=== PATIENT | female | born 1940 | race Caucasian/White ===

== ENCOUNTER 2017-01-08 05:59 | Day surgery (SDC) | payer OTHER ==
[2017-01-04 13:32] VITALS: BMI 26.9
--- NOTE | 2017-01-08 07:33 | HP ---
Admitting History and Physical - Primary Care Physician PCP: Enrique Garrett - Admission History of Present Illness: patient is a 76 y/o female with a past medical history of anxiety, depression, ocd, hypertension, and hyperlipidemia. patient presents for ect. she has received ect in the past, her last ect was 3 years ago at [facility]. she reports self-discontinuing ect because of lack of improvement of depression. She does report a recent hospitalizations at [facility] 04/18 , for depression. patient does reports suicidal ideation, however, she does not have a plan. She denies any homicidal ideation, visual or auditory hallucination. She does report compliance with prescribed medications. History Source: Patient Limitations to Obtaining History: No Limitations - Past Medical History Cardiovascular: Yes: HTN - Smoking History Smoking history: Never smoked Have you smoked in the past 12 months: No - Alcohol/Substance Use Hx Alcohol Use: No - Social History Usual Living Arrangement: Yes: With Spouse ADL: Independent History of Recent Travel: No Home Medications - Allergies Allergies/Adverse Reactions: Allergies Allergy/AdvReac Type Severity Reaction Status Date / Time ciprofloxacin [From Cipro] Allergy Severe Swelling Verified 01/02/12 11:32 ciprofloxacin HCl Allergy Severe Swelling Verified 01/02/12 11:32 [From Cipro] levofloxacin [From Levaquin] Allergy Severe Swelling Verified 01/04/17 13:35 - Home Medications Home Medications: Ambulatory Orders Atorvastatin Ca [Lipitor] 20 mg PO HS 07/22/13 FA/Mv,Ca,Iron,Min/Lycopene/Lut [Centrum Tablet] 1 each PO DAILY 07/22/13 Ramipril [Altace] 10 mg PO DAILY 07/22/13 Trazodone HCl 50 mg PO HS 11/09/16 Alprazolam [Xanax] 0.5 mg PO BID PRN 01/04/17 Cholecalciferol (Vitamin D3) [Vitamin D3] 2,000 unit PO DAILY 01/04/17 Fluoxetine HCl [Prozac] 20 mg PO DAILY 01/04/17 Family Disease History - Family Disease History Family Disease History: Other: Daughter (depression/anxiety ) Review of Systems - Review of Systems Constitutional: reports: No Symptoms Eyes: reports: No Symptoms HENT: reports: No Symptoms Neck: reports: No Symptoms Cardiovascular: reports: No Symptoms Respiratory: reports: No Symptoms Gastrointestinal: reports: No Symptoms Musculoskeletal: reports: No Symptoms Integumentary: reports: No Symptoms Neurological: reports: No Symptoms Endocrine: reports: No Symptoms Hematology/Lymphatic: reports: No Symptoms Psychiatric: reports: Anxiety, Depression Physical Examination Vital Signs: Vital Signs Temperature 97.8 F 01/08/17 07:04 Pulse Rate 64 01/08/17 07:04 Respiratory Rate 18 01/08/17 07:04 Blood Pressure 127/68 01/08/17 07:04 O2 Sat by Pulse Oximetry (%) 98 01/08/17 07:04 Constitutional: Yes: Well Nourished, Anxious Eyes: Yes: WNL, Conjunctiva Clear, EOM Intact HENT: Yes: WNL, Atraumatic, Normocephalic Neck: Yes: WNL, Supple, Trachea Midline Cardiovascular: Yes: WNL, Regular Rate and Rhythm, S1, S2 Respiratory: Yes: WNL, Regular, CTA Bilaterally Gastrointestinal: Yes: WNL, Normal Bowel Sounds, Soft ...Rectal Exam: Yes: Deferred Renal/: Yes: WNL Musculoskeletal: Yes: WNL Extremities: Yes: WNL Edema: No Peripheral Pulses WNL: Yes Peripheral Pulses: Left Radial: 4+, Right Radial: 4+, Left Doralis Pedis: 3+, Right Dorsalis Pedis: 3+, Left Femoral: 3+, Right Femoral: 3+ Neurological: Yes: WNL, Alert, Oriented ...Motor Strength: WNL Psychiatric: Yes: WNL, Alert, Oriented Imaging - Results EKG: Other (NSR, nst inferior leads) Assessment/Plan pt is a 76 y/o female that presents for ect, pt reports [facility] which resulted as negative as per the patient. labs and ekg reviewed pt is low risk for procedure informed consent, risks/benefits to be obtained by Dr Brown
[2017-01-08 08:25] LABS: ALBUMIN 3.7 g/dl (3.4-5.0); BILIRUBIN,TOTAL 0.7 mg/dL (0.2-1.0); CALCIUM 9.3 mg/dL (8.5-10.1); COCKROFT - GAULT 47.7105; CREATININE 1.2 mg/dL (0.55-1.02); TOT PROT 6.3 g/dl (6.4-8.2)
[2017-01-08 08:43] LABS: BASOPHIL 0.4 % (0-2.0); EOSINOPHIL 1.7 % (0-4.5); MCH 31.2 pg (25.7-33.7); MCHC 35.1 g/dl (32.0-36.0); MEAN CELL VOLUME 88.9 fl (80-96); MEAN PLT VOLUME 9.3 fl (7.5-11.1); NEUTROPHILS 72.3 % (42.8-82.8); PLATELET COUNT 205 K/MM3 (134-434); RDW 13.4 % (11.6-15.6); WHITE BLOOD COUNT 8.6 K/mm3 (4.0-10.0)
[2017-01-08] MEDS ORDERED: KETAMINE HCL 500 MG/10 ML VIAL ONE (08:45)
[2017-01-08] MEDS ORDERED: ACETAMINOPHEN 325 MG TABLET (FP) ONE (10:11)
[2017-01-08] MEDS ORDERED: ACETAMINOPHEN 325 MG TABLET (FP) PO ONE (10:23)
[2017-01-08 10:29] VITALS: TEMP 98.8
[2017-01-08 10:31] VITALS: BP 129/79; PULSE 88
--- NOTE | 2017-01-09 09:04 | EKG ---
Test Reason : Blood Pressure : / mmHG Vent. Rate : 065 BPM Atrial Rate : 065 BPM P-R Int : 164 ms QRS Dur : 084 ms QT Int : 414 ms P-R-T Axes : 038 000 035 degrees QTc Int : 430 ms NORMAL SINUS RHYTHM INFERIOR INFARCT , AGE UNDETERMINED NO PREVIOUS ECGS AVAILABLE Confirmed by MD NAA, SHERIN ([id number]) on 01/09/2017 9:04:44 AM Referred By: Óscar Brown Confirmed By:SHERIN JACOME MD
== END 2017-01-08 10:30 | disposition home or self-care (01) ==
LOC: FECT 05:59
PROVIDERS: ATTEND Psychiatry & Neurology Psychiatry
PROC: GZB4ZZZ Other Electroconvulsive Therapy (ICD-10-PCS; principal; 2017-01-08 08:30)
DX: F33.2 Major depressive disorder, recurrent severe without psychotic features (principal)
CPT/HCPCS: 36415; 80053; 85025; 90870; 93005; 94760

== ENCOUNTER 2017-01-10 05:20 | Day surgery (SDC) | payer OTHER ==
[2017-01-09 09:25] VITALS: BMI 26.9
[2017-01-10 06:09] VITALS: TEMP 97.8
[2017-01-10] MEDS ORDERED: KETAMINE HCL 500 MG/10 ML VIAL ONE (06:54)
[2017-01-10 08:32] VITALS: BP 116/74; PULSE 62
[2017-01-10] MEDS ORDERED: LACTATED RINGERS SOLUTION 1,000 ML IV SCH (09:45)
[2017-01-10] MEDS ORDERED: ONDANSETRON 4 MG/2 ML VIAL IVPUSH PRN (10:10)
== END 2017-01-10 08:15 | disposition home or self-care (01) ==
LOC: FECT 05:20
PROVIDERS: ATTEND Psychiatry & Neurology Psychiatry
PROC: GZB4ZZZ Other Electroconvulsive Therapy (ICD-10-PCS; principal; 2017-01-10 07:15)
DX: F33.2 Major depressive disorder, recurrent severe without psychotic features (principal)
CPT/HCPCS: 90870; 94760

== ENCOUNTER 2017-01-12 06:16 | Day surgery (SDC) | payer OTHER ==
[2017-01-08 08:28] VITALS: BMI 26.9
[2017-01-12] MEDS ORDERED: KETAMINE HCL 500 MG/10 ML VIAL ONE (08:12)
[2017-01-12 09:26] VITALS: TEMP 98.7
[2017-01-12 09:54] VITALS: BP 141/91; PULSE 66
== END 2017-01-12 09:55 | disposition home or self-care (01) ==
LOC: FECT 06:16
PROVIDERS: ATTEND Psychiatry & Neurology Psychiatry
PROC: GZB4ZZZ Other Electroconvulsive Therapy (ICD-10-PCS; principal; 2017-01-12 07:45)
DX: F33.2 Major depressive disorder, recurrent severe without psychotic features (principal)
CPT/HCPCS: 90870; 94760

== ENCOUNTER 2017-01-15 06:01 | Day surgery (SDC) | payer OTHER ==
[2017-01-08 13:28] VITALS: BMI 26.9
[2017-01-15] MEDS ORDERED: KETAMINE HCL 500 MG/10 ML VIAL ONE (08:00)
[2017-01-15 09:15] VITALS: PULSE 65; TEMP 97.7
[2017-01-15 09:36] VITALS: BP 139/74
== END 2017-01-15 09:51 | disposition home or self-care (01) ==
LOC: FECT 06:01
PROVIDERS: ATTEND Psychiatry & Neurology Psychiatry
PROC: GZB4ZZZ Other Electroconvulsive Therapy (ICD-10-PCS; principal; 2017-01-15 08:30)
DX: F33.2 Major depressive disorder, recurrent severe without psychotic features (principal)
CPT/HCPCS: 90870; 94760

== ENCOUNTER 2017-01-17 05:31 | Day surgery (SDC) | payer OTHER ==
[2017-01-10 12:18] VITALS: BMI 26.9
[2017-01-17] MEDS ORDERED: KETAMINE HCL 500 MG/10 ML VIAL ONE (08:57)
[2017-01-17 15:30] VITALS: PULSE 67; TEMP 97.7
[2017-01-17 15:40] VITALS: BP 136/75
== END 2017-01-17 10:25 | disposition home or self-care (01) ==
LOC: FECT 05:31
PROVIDERS: ATTEND Psychiatry & Neurology Psychiatry
PROC: GZB4ZZZ Other Electroconvulsive Therapy (ICD-10-PCS; principal; 2017-01-17 08:00)
DX: F33.2 Major depressive disorder, recurrent severe without psychotic features (principal)
CPT/HCPCS: 90870; 94760

== ENCOUNTER 2017-01-19 05:41 | Day surgery (SDC) | payer OTHER ==
[2017-01-09 14:21] VITALS: BMI 26.9
[2017-01-19] MEDS ORDERED: KETAMINE HCL 500 MG/10 ML VIAL ONE (09:10)
[2017-01-19 10:46] VITALS: TEMP 98.1
[2017-01-19 10:47] VITALS: BP 128/70; PULSE 77
[2017-01-19] MEDS ORDERED: ONDANSETRON 4 MG/2 ML VIAL IVPUSH PRN (10:57)
[2017-01-19] MEDS ORDERED: LACTATED RINGERS SOLUTION 1,000 ML IV SCH (11:00)
== END 2017-01-19 10:20 | disposition home or self-care (01) ==
LOC: FECT 05:41
PROVIDERS: ATTEND Psychiatry & Neurology Psychiatry
PROC: GZB4ZZZ Other Electroconvulsive Therapy (ICD-10-PCS; principal; 2017-01-19 08:00)
DX: F33.2 Major depressive disorder, recurrent severe without psychotic features (principal)
CPT/HCPCS: 90870; 94760

== ENCOUNTER 2017-01-22 06:01 | Day surgery (SDC) | payer OTHER ==
[2017-01-09 14:28] VITALS: BMI 26.9
[2017-01-22] MEDS ORDERED: KETAMINE HCL 500 MG/10 ML VIAL ONE (07:56)
[2017-01-22 09:38] VITALS: BP 128/73; PULSE 56; TEMP 97.5
== END 2017-01-22 09:15 | disposition home or self-care (01) ==
LOC: FECT 06:01
PROVIDERS: ATTEND Psychiatry & Neurology Psychiatry
PROC: GZB4ZZZ Other Electroconvulsive Therapy (ICD-10-PCS; principal; 2017-01-22 08:15)
DX: F33.2 Major depressive disorder, recurrent severe without psychotic features (principal)
CPT/HCPCS: 90870; 94760

== ENCOUNTER 2017-01-24 05:46 | Day surgery (SDC) | payer OTHER ==
[2017-01-18 16:03] VITALS: BMI 26.9
[2017-01-24] MEDS ORDERED: ONDANSETRON 4 MG/2 ML VIAL IVPUSH PRN (07:30)
[2017-01-24] MEDS ORDERED: ACETAMINOPHEN 325 MG TABLET (FP) PO PRN (07:30)
[2017-01-24 10:37] VITALS: BP 132/76; PULSE 70; TEMP 97.8
== END 2017-01-24 10:00 | disposition home or self-care (01) ==
LOC: FECT 05:46
PROVIDERS: ATTEND Psychiatry & Neurology Psychiatry
PROC: GZB4ZZZ Other Electroconvulsive Therapy (ICD-10-PCS; principal; 2017-01-24 08:30)
DX: F33.2 Major depressive disorder, recurrent severe without psychotic features (principal)
CPT/HCPCS: 90870; 94760

== ENCOUNTER → 2017-01-26 | Day surgery (SDC) | payer OTHER ==
[2017-01-18 16:07] VITALS: BMI 26.9
[~2017-01-26] MED LIST: KETAMINE HCL 500 MG/10 ML VIAL ONE; LACTATED RINGERS SOLUTION 1,000 ML IV SCH
[2017-01-26 09:35] VITALS: TEMP 97.9
[2017-01-26 10:34] VITALS: BP 145/88; PULSE 62
== END | disposition home or self-care (01) ==
LOC: FECT 06:30
PROVIDERS: ATTEND Psychiatry & Neurology Psychiatry
PROC: GZB4ZZZ Other Electroconvulsive Therapy (ICD-10-PCS; principal; 2017-01-26 08:30)
DX: F33.2 Major depressive disorder, recurrent severe without psychotic features (principal)
CPT/HCPCS: 90870; 94760

== ENCOUNTER 2017-01-31 05:40 | Day surgery (SDC) | payer OTHER ==
[2017-01-26 11:34] VITALS: BMI 26.9
[2017-01-31 07:58] VITALS: TEMP 97.6
[2017-01-31 08:10] VITALS: BP 123/70; PULSE 72
== END 2017-01-31 08:17 | disposition home or self-care (01) ==
LOC: FECT 05:40
PROVIDERS: ATTEND Psychiatry & Neurology Psychiatry
PROC: GZB4ZZZ Other Electroconvulsive Therapy (ICD-10-PCS; principal; 2017-01-31 07:30)
DX: F33.2 Major depressive disorder, recurrent severe without psychotic features (principal)
CPT/HCPCS: 90870; 94760

== ENCOUNTER 2017-02-02 05:40 | Day surgery (SDC) | payer OTHER ==
[2017-01-26 12:12] VITALS: BMI 26.9
[2017-02-02 08:57] VITALS: TEMP 97.5
[2017-02-02 09:03] VITALS: BP 120/71; PULSE 72
== END 2017-02-02 09:00 | disposition home or self-care (01) ==
LOC: FECT 05:40
PROVIDERS: ATTEND Psychiatry & Neurology Psychiatry
PROC: GZB4ZZZ Other Electroconvulsive Therapy (ICD-10-PCS; principal; 2017-02-02 07:45)
DX: F33.2 Major depressive disorder, recurrent severe without psychotic features (principal)
CPT/HCPCS: 90870; 94760

== ENCOUNTER 2017-02-05 05:42 | Day surgery (SDC) | payer OTHER ==
[2017-01-30 12:14] VITALS: BMI 26.9
[2017-02-05] MEDS ORDERED: ACETAMINOPHEN 325 MG TABLET (FP) ONE (09:09)
[2017-02-05] MEDS ORDERED: ACETAMINOPHEN 325 MG TABLET (FP) PO PRN (09:15)
[2017-02-05 09:30] VITALS: TEMP 97.5
[2017-02-05 09:34] VITALS: BP 140/77; PULSE 66
== END 2017-02-05 09:37 | disposition home or self-care (01) ==
LOC: FECT 05:42
PROVIDERS: ATTEND Psychiatry & Neurology Psychiatry
PROC: GZB4ZZZ Other Electroconvulsive Therapy (ICD-10-PCS; principal; 2017-02-05 07:30)
DX: F33.2 Major depressive disorder, recurrent severe without psychotic features (principal)
CPT/HCPCS: 90870; 94760

== ENCOUNTER 2017-02-07 06:04 | Emergency (ER) | payer OTHER ==
--- NOTE | 2017-02-07 06:10 | PDOC ---
History of Present Illness - General History Source: Patient Exam Limitations: No Limitations - History of Present Illness Initial Comments: 76 yo F history HTN, HL, MDD presents with chest discomfort since last night. She states that she started to have discomfort in the L part of her chest intermittently. Currently having the discomfort. Denies SOB, f/c, cough, diaphoresis, N/V. She is having belching along with the discomfort. She initially attributed it to stomach upset, but it has not resolved. She was scheduled for ECT this morning for her depression, but was referred to the ED when she mentioned her chest symptoms. No prior cardiac workup. She is currently changing primary care physicians, she previously saw a water service supervisor who practices at [place] (does primary care as well). <Dora Worthington - Last Filed: 02/07/17 06:28> <Gregg Lagunas - Last Filed: 02/07/17 10:58> - General Chief Complaint: Pain, Acute Stated Complaint: CHEST DISCOMFORT Time Seen by Provider: 02/07/17 06:06 Past History - Past Medical History Anemia: No Asthma: Yes (ALLERGIC ASTHMA) Cancer: Yes (SQUAMOUS CELL SHOULDER) Cardiac Disorders: No CVA: No COPD: No CHF: No Dementia: No Diabetes: No GI Disorders: No (IBS; COLON POLYPS; DIVERTICULOSIS) Disorders: No HTN: Yes Hypercholesterolemia: Yes Liver Disease: Yes (FATTY LIVER,2 LIVER CYSTS) Seizures: No Thyroid Disease: Yes (PARATHYROID NODULES) - Surgical History Abdominal Surgery: Yes Appendectomy: No Cardiac Surgery: No Cholecystectomy: No Lung Surgery: No Neurologic Surgery: Yes (SPINE SURGERY) Orthopedic Surgery: No - Psycho/Social/Smoking Cessation Hx Anxiety: Yes Smoking History: Never smoked Have you smoked in the past 12 months: No Hx Alcohol Use: No Drug/Substance Use Hx: No Substance Use Type: None Hx Substance Use Treatment: No <Dora Worthington - Last Filed: 02/07/17 06:28> <Gregg Lagunas - Last Filed: 02/07/17 10:58> - Past Medical History Allergies/Adverse Reactions: Allergies Allergy/AdvReac Type Severity Reaction Status Date / Time ciprofloxacin [From Cipro] Allergy Severe Swelling Verified 02/07/17 06:06 ciprofloxacin HCl Allergy Severe Swelling Verified 02/07/17 06:06 [From Cipro] levofloxacin [From Levaquin] Allergy Severe Swelling Verified 02/07/17 06:06 Home Medications: Ambulatory Orders Atorvastatin Ca [Lipitor] 20 mg PO HS 07/22/13 FA/Mv,Ca,Iron,Min/Lycopene/Lut [Centrum Tablet] 1 each PO DAILY 07/22/13 Ramipril [Altace] 10 mg PO DAILY 07/22/13 Trazodone HCl 50 mg PO HS 11/09/16 Alprazolam [Xanax] 0.5 mg PO QID 01/04/17 Cholecalciferol (Vitamin D3) [Vitamin D3] 2,000 unit PO DAILY 01/04/17 Fluoxetine HCl [Prozac] 20 mg PO DAILY 01/04/17 Review of Systems - Review of Systems Able to Perform ROS?: Yes Comments:: GENERAL/CONSTITUTIONAL: No fever or chills. No weakness. HEAD, EYES, EARS, NOSE AND THROAT: No change in vision. No ear pain or discharge. No sore throat. CARDIOVASCULAR: No chest pain or shortness of breath. RESPIRATORY: No cough, wheezing, or hemoptysis. GASTROINTESTINAL: No nausea, vomiting, diarrhea or constipation. GENITOURINARY: No dysuria, frequency, or change in urination. MUSCULOSKELETAL: No joint or muscle swelling or pain. No neck or back pain. SKIN: No rash NEUROLOGIC: No headache, vertigo, loss of consciousness, or change in strength/ sensation. ENDOCRINE: No increased thirst. No abnormal weight change. HEMATOLOGIC/LYMPHATIC: No anemia, easy bleeding, or history of blood clots. ALLERGIC/IMMUNOLOGIC: No hives or skin allergy. <Dora Worthington - Last Filed: 02/07/17 06:28> *Physical Exam - Physical Exam Comments: GENERAL: Awake, alert, and fully oriented, in no acute distress HEAD: No signs of trauma EYES: PERRLA, EOMI, sclera anicteric, conjunctiva clear ENT: Auricles normal inspection, hearing grossly normal, nares patent, oropharynx clear without exudates. Moist mucosa NECK: Normal ROM, supple, no lymphadenopathy, JVD, or masses LUNGS: Breath sounds equal, clear to auscultation bilaterally. ~No wheezes, and no crackles HEART: Regular rate and rhythm, normal S1 and S2, no murmurs, rubs or gallops ABDOMEN: Soft, nontender, normoactive bowel sounds. ~No guarding, no rebound. ~ No masses EXTREMITIES: Normal range of motion, no edema. ~No clubbing or cyanosis. No cords, erythema, or tenderness NEUROLOGICAL: Cranial nerves II through XII grossly intact. ~Normal speech, normal gait SKIN: Warm, Dry, normal turgor, no rashes or lesions noted. <Dora Worthington - Last Filed: 02/07/17 06:28> - Vital Signs Last Vital Signs Temp Pulse Resp BP Pulse Ox 97.9 F 62 17 143/79 99 02/07/17 06:10 02/07/17 07:19 02/07/17 07:16 02/07/17 07:16 02/07/17 07:19 <Gregg Lagunas - Last Filed: 02/07/17 10:58> Heart Score/ECG Review - History History: Highly suspicious - Electrocardiogram EKG: Normal - Age Age: >/= 65 - Risk Factors Risk Factors Heart Score: Yes Hx Hypercholesterolemia, Yes Hx Hypertension Based on the list above the patient has:: 1-2 risk factors - Troponin Troponin: </= normal limit - Score Heart Score - Total: 5 - ECG Impressions Comment:: EKG read 06:20- NSR 65 bpm, no acute ST/T changes <Dora Worthington - Last Filed: 02/07/17 06:28> ED Treatment Course - LABORATORY CBC & Chemistry Diagram: 02/07/17 06:46 02/07/17 06:46 - ADDITIONAL ORDERS Additional order review: Laboratory Results 02/07/17 02/07/17 06:46 06:46 INR 1.12 Sodium 143 Potassium 4.2 Chloride 107 Carbon Dioxide 28 Anion Gap 8 BUN 16 D Creatinine 1.2 Creat Clearance w eGFR 43.91 Random Glucose 112 H Calcium 9.3 Total Bilirubin 0.6 D AST 13 ALT 20 D Alkaline Phosphatase 63 Creatine Kinase 41 Troponin I < 0.02 Total Protein 6.4 Albumin 3.8 02/07/17 06:46 RBC 4.31 MCV 90.0 MCHC 35.0 RDW 13.4 MPV 9.4 Neutrophils % 69.1 Lymphocytes % 21.8 Monocytes % 4.8 Eosinophils % 3.8 D Basophils % 0.5 - Medications Given in the ED: ED Medications Discontinued Medications Generic Name Dose Route Start Last Admin Trade Name Graham PRN Reason Stop Dose Admin Aspirin 325 mg 02/07/17 06:27 02/07/17 06:40 Asa - PO 02/07/17 06:28 325 mg ONCE ONE Administration <Gregg Lagunas - Last Filed: 02/07/17 10:58> Medical Decision Making - Medical Decision Making 02/07/17 10:55 The patient and her are extremely concerned about the cost incurred with admission. Despite prolonged discussion about the possible dangers of leaving the hospital with chest pain, the possibility that this could be a heart attack and result in significant disability or , they insist upon leaving AGAINST MEDICAL ADVICE. <Gregg Lagunas - Last Filed: 02/07/17 10:58> *DC/Admit/Observation/Transfer <Dora Worthington - Last Filed: 02/07/17 06:28> - Discharge Dispostion Admit: Yes <Gregg Lagunas - Last Filed: 02/07/17 10:58> Diagnosis at time of Disposition: Chest pain Qualifiers: Chest pain type: unspecified Qualified Code(s): R07.9 - Chest pain, unspecified - Discharge Dispostion Condition at time of disposition: Stable
[2017-02-07 06:21] VITALS: TEMP 97.9; BMI 31.6
[2017-02-07] MEDS ORDERED: ASPIRIN 325 MG TABLET PO ONE (06:27)
[2017-02-07 07:28] LABS: BASOPHIL 0.5 % (0-2.0); EOSINOPHIL 3.8 % (0-4.5); MCH 31.5 pg (25.7-33.7); MEAN PLT VOLUME 9.4 fl (7.5-11.1); NEUTROPHILS 69.1 % (42.8-82.8); PLATELET COUNT 210 K/MM3 (134-434); RDW 13.4 % (11.6-15.6); WHITE BLOOD COUNT 7.3 K/mm3 (4.0-10.0)
[2017-02-07 07:46] LABS: TROPONIN I < 0.02 ng/ml (0.00-0.05)
[2017-02-07 08:27] LABS: ALBUMIN 3.8 g/dl (3.5-5.0); ANION GAP 8 (8-16); CALCIUM 9.3 mg/dl (8.4-10.2); CO2 28 mmol/L (22-28); COCKROFT - GAULT 55.9555; CREATININE 1.2 mg/dl (0.6-1.3); GLUCOSE,RANDOM 112 mg/dl (74-106); TOT PROT 6.4 g/dl (6.4-8.3)
[2017-02-07 08:28] LABS: ALK PHOS 63 U/L (32-92); BILIRUBIN,TOTAL 0.6 mg/dl (0.2-1.0); SGOT/AST 13 U/L (10-42); SGPT/ALT 20 U/L (10-40)
[2017-02-07 08:34] LABS: INR 1.12 (0.82-1.09); PROTHROMBIN TIME (PATIENT) 12.3 SEC (9.98-11.88)
--- NOTE | 2017-02-07 09:51 | HP ---
CHIEF COMPLAINT: PCP: HISTORY OF PRESENT ILLNESS: ER course was notable for: (1) (2) (3) Recent Travel: PAST MEDICAL HISTORY: PAST SURGICAL HISTORY: Social History: Smoking: Alcohol: Drugs: Family History: Allergies ciprofloxacin [From Cipro] Allergy (Severe, Verified 02/07/17 06:06) Swelling ciprofloxacin HCl [From Cipro] Allergy (Severe, Verified 02/07/17 06:06) Swelling levofloxacin [From Levaquin] Allergy (Severe, Verified 02/07/17 06:06) Swelling PAINFUL FEET HOME MEDICATIONS: Home Medications Medication Instructions Recorded Atorvastatin Ca [Lipitor] 20 mg PO HS 07/22/13 FA/Mv,Ca,Iron,Min/Lycopene/Lut 1 each PO DAILY 07/22/13 [Centrum Tablet] Ramipril [Altace] 10 mg PO DAILY 07/22/13 Trazodone HCl 50 mg PO HS 11/09/16 Alprazolam [Xanax] 0.5 mg PO QID 01/04/17 Cholecalciferol (Vitamin D3) 2,000 unit PO DAILY 01/04/17 [Vitamin D3] Fluoxetine HCl [Prozac] 20 mg PO DAILY 01/04/17 REVIEW OF SYSTEMS CONSTITUTIONAL: Absent: fever, chills, diaphoresis, generalized weakness, malaise, loss of appetite, weight change HEENT: Absent: rhinorrhea, nasal congestion, throat pain, throat swelling, difficulty swallowing, mouth swelling, ear pain, eye pain, visual changes CARDIOVASCULAR: Absent: chest pain, syncope, palpitations, irregular heart rate, lightheadedness , peripheral edema RESPIRATORY: Absent: cough, shortness of breath, dyspnea with exertion, orthopnea, wheezing, stridor, hemoptysis GASTROINTESTINAL: Absent: abdominal pain, abdominal distension, nausea, vomiting, diarrhea, constipation, melena, hematochezia GENITOURINARY: Absent: dysuria, frequency, urgency, hesitancy, hematuria, flank pain, genital pain MUSCULOSKELETAL: Absent: myalgia, arthralgia, joint swelling, back pain, neck pain SKIN: Absent: rash, itching, pallor HEMATOLOGIC/IMMUNOLOGIC: Absent: easy bleeding, easy bruising, lymphadenopathy, frequent infections ENDOCRINE: Absent: unexplained weight gain, unexplained weight loss, heat intolerance, cold intolerance NEUROLOGIC: Absent: headache, focal weakness or paresthesias, dizziness, unsteady gait, seizure, mental status changes, bladder or bowel incontinence PSYCHIATRIC: Absent: anxiety, depression, suicidal or homicidal ideation, hallucinations. PHYSICAL EXAMINATION Vital Signs - 24 hr 02/07/17 02/07/17 02/07/17 06:10 07:16 07:19 Temperature 97.9 F Pulse Rate 78 62 Pulse Rate [ 62 Left] Respiratory 16 17 Rate Blood Pressure 154/96 Blood Pressure 143/79 [Left] O2 Sat by Pulse 95 98 99 Oximetry (%) GENERAL: Awake, alert, and fully oriented, in no acute distress. HEAD: Normal with no signs of trauma. EYES: Pupils equal, round and reactive to light, extraocular movements intact, sclera anicteric, conjunctiva clear. No lid lag. EARS, NOSE, THROAT: Ears normal, nares patent, oropharynx clear without exudates. Moist mucous membranes. NECK: Normal range of motion, supple without lymphadenopathy, JVD, or masses. LUNGS: Breath sounds equal, clear to auscultation bilaterally. No wheezes, and no crackles. No accessory muscle use. HEART: Regular rate and rhythm, normal S1 and S2 without murmur, rub or gallop. ABDOMEN: Soft, nontender, not distended, normoactive bowel sounds, no guarding, no rebound, no masses. No hepatomegaly or splenomegaly. MUSCULOSKELETAL: Normal range of motion at all joints. No bony deformities or tenderness. No CVA tenderness. UPPER EXTREMITIES: 2+ pulses, warm, well-perfused. No cyanosis. No clubbing. No peripheral edema. LOWER EXTREMITIES: 2+ pulses, warm, well-perfused. No calf tenderness. No peripheral edema. NEUROLOGICAL: Cranial nerves II-XII intact. Normal speech. Normal gait. PSYCHIATRIC: Cooperative. Good eye contact. Appropriate mood and affect. SKIN: Warm, dry, normal turgor, no rashes or lesions noted, normal capillary refill. Laboratory Results - last 24 hr 02/07/17 02/07/17 02/07/17 06:46 06:46 06:46 WBC 7.3 RBC 4.31 Hgb 13.6 Hct 38.8 MCV 90.0 MCHC 35.0 RDW 13.4 Plt Count 210 MPV 9.4 Neutrophils % 69.1 Lymphocytes % 21.8 Monocytes % 4.8 Eosinophils % 3.8 D Basophils % 0.5 INR 1.12 Sodium 143 Potassium 4.2 Chloride 107 Carbon Dioxide 28 Anion Gap 8 BUN 16 D Creatinine 1.2 Creat Clearance w eGFR 43.91 Random Glucose 112 H Calcium 9.3 Total Bilirubin 0.6 D AST 13 ALT 20 D Alkaline Phosphatase 63 Creatine Kinase 41 Troponin I < 0.02 Total Protein 6.4 Albumin 3.8 ASSESSMENT/PLAN:
[2017-02-07] MEDS ORDERED: PATIENT'S OWN MEDICATION (NON-FORMULARY) (Alprazolam [Xanax] 0.5 MG) PO PRN (09:52)
[2017-02-07] MEDS ORDERED: ALPRAZolam 0.25 MG TABLET PO PRN (09:57)
[2017-02-07] MEDS ORDERED: CHOLECALCIFEROL (VITAMIN D3) 1,000 UNIT TABLET (FP) PO SCH (10:00)
[2017-02-07] MEDS ORDERED: FLUoxetine HCL 20 MG CAPSULE (FP) PO SCH (10:00)
[2017-02-07] MEDS ORDERED: RAMIPRIL 5 MG CAPSULE (FP) PO SCH (10:00)
[2017-02-07] MEDS ORDERED: MULTIVITAMINS THER W-MINERALS COMBO TABLET (FP) PO SCH (10:00)
[2017-02-07 10:04] VITALS: BP 138/73; PULSE 73
--- NOTE | 2017-02-07 11:23 | HOSP ---
Physical Examination Vital Signs: Vital Signs Temperature 97.9 F 02/07/17 10:03 Pulse Rate 73 02/07/17 10:03 Respiratory Rate 20 02/07/17 10:03 Blood Pressure 138/73 02/07/17 10:03 O2 Sat by Pulse Oximetry (%) 98 02/07/17 10:03 Labs: CBC, BMP 02/07/17 06:46 02/07/17 06:46 Hospitalist Encounter Outcome: patient declines observation admission at this time. Patient was discharged by emergency department physician Dr Suleman Lagunas against medical advice.
[2017-02-07] MEDS ORDERED: ATORVASTATIN CA 20 MG TABLET (FP) PO SCH (22:00)
[2017-02-07] MEDS ORDERED: traZODone HCL 50 MG TABLET (FP) PO SCH (22:00)
== END 2017-02-07 11:15 | disposition left against medical advice (07) ==
LOC: FER 06:04
DX: R07.9 Chest pain, unspecified (principal); F32.9 Major depressive disorder, single episode, unspecified; J45.909 Unspecified asthma, uncomplicated; E07.9 Disorder of thyroid, unspecified; Z85.828 Personal history of other malignant neoplasm of skin; K58.9 Irritable bowel syndrome, unspecified; I10 Essential (primary) hypertension; F41.9 Anxiety disorder, unspecified
CPT/HCPCS: 36415; 71010-TC; 80053; 82550; 84484; 85025; 85610; 93005; 93010; 99283-25

== ENCOUNTER 2017-02-12 05:44 | Day surgery (SDC) | payer OTHER ==
[2017-02-12 06:43] VITALS: BMI 26.9
[2017-02-12 08:57] VITALS: TEMP 97.6
[2017-02-12 08:59] VITALS: BP 116/74; PULSE 64
== END 2017-02-12 09:00 | disposition home or self-care (01) ==
LOC: FECT 05:44
PROVIDERS: ATTEND Psychiatry & Neurology Psychiatry
PROC: GZB4ZZZ Other Electroconvulsive Therapy (ICD-10-PCS; principal; 2017-02-12 08:15)
DX: F33.2 Major depressive disorder, recurrent severe without psychotic features (principal)
CPT/HCPCS: 90870; 94760

== ENCOUNTER 2017-02-14 05:38 | Day surgery (SDC) | payer OTHER ==
[2017-02-13 10:46] VITALS: BMI 26.9
[2017-02-14] MEDS ORDERED: ONDANSETRON 4 MG/2 ML VIAL IVPUSH PRN (07:05)
[2017-02-14] MEDS ORDERED: LACTATED RINGERS SOLUTION 1,000 ML IV SCH (07:15)
[2017-02-14] MEDS ORDERED: KETAMINE HCL 500 MG/10 ML VIAL ONE (07:30)
[2017-02-14 08:32] VITALS: TEMP 97.5
[2017-02-14 09:12] VITALS: BP 134/82; PULSE 66
== END 2017-02-14 09:00 | disposition home or self-care (01) ==
LOC: FECT 05:38
PROVIDERS: ATTEND Psychiatry & Neurology Psychiatry
PROC: GZB4ZZZ Other Electroconvulsive Therapy (ICD-10-PCS; principal; 2017-02-14 07:30)
DX: F33.2 Major depressive disorder, recurrent severe without psychotic features (principal)
CPT/HCPCS: 90870; 94760

== ENCOUNTER 2017-02-16 05:43 | Day surgery (SDC) | payer OTHER ==
[2017-02-16] MEDS ORDERED: ONDANSETRON 4 MG/2 ML VIAL IVPUSH PRN (08:00)
[2017-02-16] MEDS ORDERED: LACTATED RINGERS SOLUTION 1,000 ML IV SCH (08:00)
[2017-02-16 08:52] VITALS: TEMP 97.6
[2017-02-16 09:34] VITALS: BP 133/80; PULSE 66
== END 2017-02-16 09:15 | disposition home or self-care (01) ==
LOC: FECT 05:43
PROVIDERS: ATTEND Psychiatry & Neurology Psychiatry
PROC: GZB4ZZZ Other Electroconvulsive Therapy (ICD-10-PCS; principal; 2017-02-16 07:45)
DX: F33.2 Major depressive disorder, recurrent severe without psychotic features (principal)
CPT/HCPCS: 90870; 94760

== ENCOUNTER 2017-02-20 05:41 | Day surgery (SDC) | payer OTHER ==
[2017-02-15 11:29] VITALS: BMI 26.9
[2017-02-20 06:23] VITALS: TEMP 97.8
[2017-02-20] MEDS ORDERED: KETAMINE HCL 500 MG/10 ML VIAL ONE (07:03)
[2017-02-20 08:30] VITALS: BP 124/64; PULSE 84
== END 2017-02-20 08:35 | disposition home or self-care (01) ==
LOC: FECT 05:41
PROVIDERS: ATTEND Psychiatry & Neurology Psychiatry
PROC: GZB4ZZZ Other Electroconvulsive Therapy (ICD-10-PCS; principal; 2017-02-20 07:30)
DX: F33.2 Major depressive disorder, recurrent severe without psychotic features (principal)
CPT/HCPCS: 90870; 94760

== ENCOUNTER 2017-02-27 05:43 | Day surgery (SDC) | payer OTHER ==
[2017-02-21 13:28] VITALS: BMI 26.9
[2017-02-27 09:57] VITALS: TEMP 97.5
[2017-02-27 09:59] VITALS: BP 122/66; PULSE 62
== END 2017-02-27 09:50 | disposition home or self-care (01) ==
LOC: FECT 05:43
PROVIDERS: ATTEND Psychiatry & Neurology Psychiatry
PROC: GZB4ZZZ Other Electroconvulsive Therapy (ICD-10-PCS; principal; 2017-02-27 08:00)
DX: F33.2 Major depressive disorder, recurrent severe without psychotic features (principal)
CPT/HCPCS: 90870; 94760

== ENCOUNTER 2017-03-08 05:39 | Day surgery (SDC) | payer OTHER ==
[2017-02-27 13:11] VITALS: BMI 26.9
[2017-03-08] MEDS ORDERED: ONDANSETRON 4 MG/2 ML VIAL IVPUSH PRN (08:10)
[2017-03-08] MEDS ORDERED: LACTATED RINGERS SOLUTION 1,000 ML IV SCH (08:15)
[2017-03-08 08:41] VITALS: TEMP 97.6
[2017-03-08 08:45] VITALS: BP 133/66; PULSE 68
== END 2017-03-08 08:40 | disposition home or self-care (01) ==
LOC: FECT 05:39
PROVIDERS: ATTEND Psychiatry & Neurology Psychiatry
PROC: GZB4ZZZ Other Electroconvulsive Therapy (ICD-10-PCS; principal; 2017-03-08 07:30)
DX: F33.2 Major depressive disorder, recurrent severe without psychotic features (principal)
CPT/HCPCS: 90870; 94760

== ENCOUNTER 2017-03-20 05:40 | Day surgery (SDC) | payer OTHER ==
[2017-03-15 14:47] VITALS: BMI 26.9
--- NOTE | 2017-03-20 07:09 | HP ---
Admitting History and Physical - Admission History of Present Illness: patient is a 76 y/o female with a past medical history of hypertension, hyperlipidemia, OCD, depression and anxiety. Patient presents for ect her last ect was 03/08/17. Patient reports feeling well, she does report intermittent pain to the right lateral neck. She was evaluated by her pcp and started on oxycodone. patient reports the oxycodone increased her depression, therefore she discontinued taking medication. Patient denies any radiation of the pain, she denies any paresthesia to the right upper extremity. Patient does report starting abilifiy this month and voices no concerns in regards to the medications History Source: Patient - Past Medical History Cardiovascular: Yes: HTN ...: No - Smoking History Smoking history: Never smoked Have you smoked in the past 12 months: No - Alcohol/Substance Use Hx Alcohol Use: No - Social History Usual Living Arrangement: Yes: With Spouse ADL: Independent History of Recent Travel: No Home Medications - Allergies Allergies/Adverse Reactions: Allergies Allergy/AdvReac Type Severity Reaction Status Date / Time ciprofloxacin [From Cipro] Allergy Severe Swelling Verified 03/15/17 14:47 ciprofloxacin HCl Allergy Severe Swelling Verified 03/15/17 14:47 [From Cipro] levofloxacin [From Levaquin] Allergy Severe Swelling Verified 03/15/17 14:47 - Home Medications Home Medications: Ambulatory Orders Atorvastatin Ca [Lipitor] 20 mg PO HS 07/22/13 FA/Mv,Ca,Iron,Min/Lycopene/Lut [Centrum Tablet] 1 each PO DAILY 07/22/13 Ramipril [Altace] 10 mg PO DAILY 07/22/13 Trazodone HCl 50 mg PO HS 11/09/16 Alprazolam [Xanax] 0.5 mg PO QID 01/04/17 Cholecalciferol (Vitamin D3) [Vitamin D3] 2,000 unit PO DAILY 01/04/17 Fluoxetine HCl [Prozac] 40 mg PO DAILY 01/04/17 Family Disease History - Family Disease History Family Disease History: Other: Daughter (depression/anxiety ) Review of Systems - Review of Systems Constitutional: reports: No Symptoms Eyes: reports: No Symptoms HENT: reports: No Symptoms Neck: reports: No Symptoms Cardiovascular: reports: No Symptoms Respiratory: reports: No Symptoms Gastrointestinal: reports: No Symptoms Genitourinary: reports: No Symptoms, Vaginal Bleeding Musculoskeletal: reports: Other (neck pain) Integumentary: reports: No Symptoms Neurological: reports: No Symptoms Endocrine: reports: No Symptoms Hematology/Lymphatic: reports: No Symptoms Psychiatric: reports: No Symptoms Physical Examination Constitutional: Yes: Well Nourished, No Distress, Calm Eyes: Yes: WNL, Conjunctiva Clear, EOM Intact HENT: Yes: WNL, Atraumatic, Normocephalic Neck: Yes: WNL, Supple, Trachea Midline Cardiovascular: Yes: WNL, Regular Rate and Rhythm, S1, S2 Respiratory: Yes: WNL, Regular, CTA Bilaterally Gastrointestinal: Yes: WNL, Normal Bowel Sounds, Soft ...Rectal Exam: Yes: Deferred Renal/: Yes: WNL Musculoskeletal: Yes: Other (muscle spasm noted to the trapizus muscle) Edema: No Peripheral Pulses WNL: Yes Integumentary: Yes: WNL Neurological: Yes: WNL, Alert ...Motor Strength: WNL Psychiatric: Yes: WNL, Alert, Oriented Labs: reviewed 02/07/17 Imaging - Results EKG: Image Reviewed, Other (nsr no ischemic changes) Assessment/Plan pt is a 76y/o female that presents for ect, she has received ect in the past and denies any adverse reaction to anesthesia. labs and ekg reviewed pt is low risk for procedure informed consent, risks/benefits to be obtained by Dr Brown
[2017-03-20] MEDS ORDERED: KETAMINE HCL 500 MG/10 ML VIAL ONE (08:25)
[2017-03-20 10:30] VITALS: TEMP 97.5
[2017-03-20 10:35] VITALS: BP 99/58; PULSE 68
== END 2017-03-20 09:50 | disposition home or self-care (01) ==
LOC: FECT 05:40
PROVIDERS: ATTEND Psychiatry & Neurology Psychiatry
PROC: GZB4ZZZ Other Electroconvulsive Therapy (ICD-10-PCS; principal; 2017-03-20 07:45)
DX: F33.2 Major depressive disorder, recurrent severe without psychotic features (principal)
CPT/HCPCS: 90870; 94760

== ENCOUNTER 2017-04-03 05:37 | Day surgery (SDC) | payer OTHER ==
[2017-03-21 10:41] VITALS: BMI 26.9
[2017-04-03 08:34] VITALS: TEMP 97.5
[2017-04-03 08:59] VITALS: BP 118/62; PULSE 64
== END 2017-04-03 09:01 | disposition home or self-care (01) ==
LOC: FECT 05:37
PROVIDERS: ATTEND Psychiatry & Neurology Psychiatry
PROC: GZB4ZZZ Other Electroconvulsive Therapy (ICD-10-PCS; principal; 2017-04-03 07:15)
DX: F33.2 Major depressive disorder, recurrent severe without psychotic features (principal)
CPT/HCPCS: 90870; 94760

== ENCOUNTER 2017-04-17 05:36 | Day surgery (SDC) | payer OTHER ==
[2017-04-04 09:02] VITALS: BMI 26.9
[2017-04-17] MEDS ORDERED: LACTATED RINGERS SOLUTION 1,000 ML IV SCH (07:15)
[2017-04-17] MEDS ORDERED: KETAMINE HCL 500 MG/10 ML VIAL ONE (08:37)
[2017-04-17 10:12] VITALS: TEMP 97.5
[2017-04-17 10:14] VITALS: BP 114/65; PULSE 74
== END 2017-04-17 10:10 | disposition home or self-care (01) ==
LOC: FECT 05:36
PROVIDERS: ATTEND Psychiatry & Neurology Psychiatry
PROC: GZB4ZZZ Other Electroconvulsive Therapy (ICD-10-PCS; principal; 2017-04-17 07:00)
DX: F33.2 Major depressive disorder, recurrent severe without psychotic features (principal)
CPT/HCPCS: 90870; 94760

== ENCOUNTER 2017-05-01 05:43 | Day surgery (SDC) | payer OTHER ==
[2017-04-26 08:03] VITALS: BMI 26.9
--- NOTE | 2017-05-01 07:10 | HP ---
Admitting History and Physical - Admission History of Present Illness: patient is a 76 y/o female with a past medical history of ocd, depression, anxiety, hypertension, and hyperlipidemia. Patient presents for ect her last ect was 04/17/17. Patient reports several episodes of anxiety since starting abilify. She contacted her psychiatrist and the abilify was discontinued. She reports compliance with prozac and xanax. She denies any headache, dizziness, or chest pain. patient denies any suicidal or homicidal ideation, visual or auditory hallucinations. History Source: Patient Limitations to Obtaining History: No Limitations - Past Medical History Cardiovascular: Yes: HTN, Hyperlipdemia - Smoking History Smoking history: Never smoked Have you smoked in the past 12 months: No - Alcohol/Substance Use Hx Alcohol Use: No - Social History Usual Living Arrangement: Yes: With Spouse ADL: Independent History of Recent Travel: No Home Medications - Allergies Allergies/Adverse Reactions: Allergies Allergy/AdvReac Type Severity Reaction Status Date / Time ciprofloxacin [From Cipro] Allergy Severe Swelling Verified 04/17/17 07:45 ciprofloxacin HCl Allergy Severe Swelling Verified 04/17/17 07:45 [From Cipro] levofloxacin [From Levaquin] Allergy Severe Swelling Verified 04/17/17 07:45 - Home Medications Home Medications: Ambulatory Orders Atorvastatin Ca [Lipitor] 20 mg PO HS 07/22/13 FA/Mv,Ca,Iron,Min/Lycopene/Lut [Centrum Tablet] 1 each PO DAILY 07/22/13 Ramipril [Altace] 10 mg PO DAILY 07/22/13 Trazodone HCl 50 mg PO HS 11/09/16 Alprazolam [Xanax] 0.5 mg PO QID 01/04/17 Cholecalciferol (Vitamin D3) [Vitamin D3] 2,000 unit PO DAILY 01/04/17 Fluoxetine HCl [Prozac] 40 mg PO DAILY 01/04/17 Aripiprazole [Abilify -] 2 mg PO DAILY 03/20/17 Amoxicillin - [Amoxicillin 500mg Capsule -] 500 mg PO TID 04/17/17 Family Disease History - Family Disease History Family Disease History: Other: Daughter (depression/anxiety ) Review of Systems - Review of Systems Constitutional: reports: No Symptoms Eyes: reports: No Symptoms HENT: reports: No Symptoms Neck: reports: No Symptoms Cardiovascular: reports: No Symptoms Respiratory: reports: No Symptoms Gastrointestinal: reports: No Symptoms Genitourinary: reports: No Symptoms Breasts: reports: No Symptoms Reported Musculoskeletal: reports: No Symptoms Integumentary: reports: No Symptoms Neurological: reports: No Symptoms Endocrine: reports: No Symptoms Hematology/Lymphatic: reports: No Symptoms Psychiatric: reports: Anxiety Physical Examination Constitutional: Yes: Well Nourished, No Distress, Calm Eyes: Yes: WNL, Conjunctiva Clear, EOM Intact HENT: Yes: WNL, Atraumatic, Normocephalic Neck: Yes: WNL, Supple, Trachea Midline Cardiovascular: Yes: WNL, Regular Rate and Rhythm, S1, S2 Respiratory: Yes: WNL, Regular, CTA Bilaterally Gastrointestinal: Yes: WNL, Normal Bowel Sounds, Soft ...Rectal Exam: Yes: Deferred Renal/: Yes: WNL Breast(s): Yes: WNL Musculoskeletal: Yes: WNL Extremities: Yes: WNL Edema: No Peripheral Pulses WNL: Yes Integumentary: Yes: WNL Neurological: Yes: WNL, Alert, Oriented ...Motor Strength: WNL Psychiatric: Yes: WNL, Alert, Oriented Labs: Laboratory Tests 02/07/17 02/07/17 02/07/17 06:46 06:46 06:46 WBC 7.3 RBC 4.31 Hgb 13.6 Hct 38.8 MCV 90.0 MCHC 35.0 RDW 13.4 Plt Count 210 MPV 9.4 Neutrophils % 69.1 Lymphocytes % 21.8 Monocytes % 4.8 Eosinophils % 3.8 D Basophils % 0.5 INR 1.12 Sodium 143 Potassium 4.2 Chloride 107 Carbon Dioxide 28 Anion Gap 8 BUN 16 D Creatinine 1.2 Creat Clearance w eGFR 43.91 Random Glucose 112 H Calcium 9.3 Total Bilirubin 0.6 D AST 13 ALT 20 D Alkaline Phosphatase 63 Creatine Kinase 41 Troponin I < 0.02 Total Protein 6.4 Albumin 3.8 Imaging - Results X-ray: Report Reviewed, Image Reviewed EKG: Other Assessment/Plan pt is a 76 y/o female that presents for ect, labs and ekg reviewed pt is medically optimized for procedure.
[2017-05-01] MEDS ORDERED: KETAMINE HCL 500 MG/10 ML VIAL ONE (08:36)
[2017-05-01 10:15] VITALS: TEMP 98
[2017-05-01 10:17] VITALS: BP 117/77; PULSE 69
== END 2017-05-01 10:10 | disposition home or self-care (01) ==
LOC: FECT 05:43
PROVIDERS: ATTEND Psychiatry & Neurology Psychiatry
PROC: GZB4ZZZ Other Electroconvulsive Therapy (ICD-10-PCS; principal; 2017-05-01 07:15)
DX: F33.2 Major depressive disorder, recurrent severe without psychotic features (principal)
CPT/HCPCS: 90870; 94760

== ENCOUNTER 2017-05-15 05:36 | Day surgery (SDC) | payer OTHER ==
[2017-05-02 09:28] VITALS: BMI 26.9
[2017-05-15 06:23] VITALS: PULSE 63; TEMP 97.6
[2017-05-15] MEDS ORDERED: KETAMINE HCL 500 MG/10 ML VIAL ONE (07:08)
[2017-05-15 08:25] VITALS: BP 105/58
== END 2017-05-15 08:30 | disposition home or self-care (01) ==
LOC: FECT 05:36
PROVIDERS: ATTEND Psychiatry & Neurology Psychiatry
PROC: GZB4ZZZ Other Electroconvulsive Therapy (ICD-10-PCS; principal; 2017-05-15 07:30)
DX: F33.2 Major depressive disorder, recurrent severe without psychotic features (principal)
CPT/HCPCS: 90870; 94760

== ENCOUNTER 2017-06-05 05:38 | Day surgery (SDC) | payer OTHER ==
--- NOTE | 2017-06-05 07:04 | HP ---
Admitting History and Physical - Admission History of Present Illness: patient is a 76 y/o female with a past medical history of depression, anxiety, hypertension, and hyperlipidemia. Patient presents for ect her last ect was 08/19. Patient recently completing 5 days of zithromax for acute bronchitis. Her last dose of zithromax was this past Sunday. She is currently taking 20mg of prednisone daily. Patient denies any chest pain or shortness of breath. She does reports ongoing feeling of depression. Patient denies any suicidal or homicidal ideation, visual or auditory hallucinations. History Source: Patient Limitations to Obtaining History: No Limitations - Past Medical History Cardiovascular: Yes: HTN, Hyperlipdemia - Smoking History Smoking history: Never smoked Have you smoked in the past 12 months: No - Alcohol/Substance Use Hx Alcohol Use: No - Social History ADL: Independent History of Recent Travel: No Home Medications - Allergies Allergies/Adverse Reactions: Allergies Allergy/AdvReac Type Severity Reaction Status Date / Time ciprofloxacin [From Cipro] Allergy Severe Swelling Verified 04/17/17 07:45 ciprofloxacin HCl Allergy Severe Swelling Verified 04/17/17 07:45 [From Cipro] levofloxacin [From Levaquin] Allergy Severe Swelling Verified 04/17/17 07:45 - Home Medications Home Medications: Ambulatory Orders Atorvastatin Ca [Lipitor] 20 mg PO HS 07/22/13 FA/Mv,Ca,Iron,Min/Lycopene/Lut [Centrum Tablet] 1 each PO DAILY 07/22/13 Ramipril [Altace] 10 mg PO DAILY 07/22/13 Trazodone HCl 50 mg PO HS 11/09/16 Alprazolam [Xanax] 0.5 mg PO QID 01/04/17 Cholecalciferol (Vitamin D3) [Vitamin D3] 2,000 unit PO DAILY 01/04/17 Fluoxetine HCl [Prozac] 40 mg PO DAILY 01/04/17 [place]-3 Fatty Acids [[place]-3] 1,000 mg PO DAILY 05/15/17 Family Disease History - Family Disease History Family Disease History: Other: Daughter (depression/anxiety ) Review of Systems - Review of Systems Constitutional: reports: No Symptoms Eyes: reports: No Symptoms HENT: reports: No Symptoms Neck: reports: No Symptoms Cardiovascular: reports: No Symptoms Respiratory: reports: Cough Gastrointestinal: reports: No Symptoms Genitourinary: reports: No Symptoms Musculoskeletal: reports: No Symptoms Integumentary: reports: No Symptoms Neurological: reports: No Symptoms Endocrine: reports: No Symptoms Hematology/Lymphatic: reports: No Symptoms Psychiatric: reports: No Symptoms Physical Examination Constitutional: Yes: Well Nourished, No Distress, Calm Eyes: Yes: WNL, Conjunctiva Clear, EOM Intact HENT: Yes: WNL, Atraumatic, Normocephalic Neck: Yes: WNL, Supple, Trachea Midline Cardiovascular: Yes: WNL, Regular Rate and Rhythm, S1, S2 Respiratory: Yes: WNL, Regular, CTA Bilaterally Gastrointestinal: Yes: WNL, Normal Bowel Sounds, Soft ...Rectal Exam: Yes: Deferred Renal/: Yes: WNL Musculoskeletal: Yes: WNL Extremities: Yes: WNL Edema: No Peripheral Pulses WNL: Yes Peripheral Pulses: Left Radial: 4+, Right Radial: 4+, Left Doralis Pedis: 3+, Right Dorsalis Pedis: 3+, Left Femoral: 3+, Right Femoral: 3+ Integumentary: Yes: WNL Neurological: Yes: WNL, Alert, Oriented ...Motor Strength: WNL Psychiatric: Yes: WNL, Alert, Oriented Labs: reviewed 02/17 Imaging - Results EKG: Image Reviewed (nsr) Assessment/Plan patient is a 76 y/o female that presents for ect. labs and ekg reviewed, pt is medically optimized for procedure. informed consent, risks/benefits to be obtained by Dr Brown
[2017-06-05 07:34] VITALS: BMI 27.6
[2017-06-05] MEDS ORDERED: KETAMINE HCL 500 MG/10 ML VIAL ONE (08:22)
[2017-06-05 09:06] VITALS: TEMP 98
[2017-06-05 09:40] VITALS: BP 131/73; PULSE 92
== END 2017-06-05 09:45 | disposition home or self-care (01) ==
LOC: FECT 05:38
PROVIDERS: ATTEND Psychiatry & Neurology Psychiatry
PROC: GZB4ZZZ Other Electroconvulsive Therapy (ICD-10-PCS; principal; 2017-06-05 07:15)
DX: F33.2 Major depressive disorder, recurrent severe without psychotic features (principal)
CPT/HCPCS: 90870; 94760

== ENCOUNTER 2017-06-08 05:37 | Day surgery (SDC) | payer OTHER ==
[2017-06-05 10:58] VITALS: BMI 27.6
[2017-06-08] MEDS ORDERED: KETAMINE HCL 500 MG/10 ML VIAL ONE (07:21)
[2017-06-08 08:22] VITALS: TEMP 97.7
[2017-06-08 08:45] VITALS: BP 115/65; PULSE 66
== END 2017-06-08 08:45 | disposition home or self-care (01) ==
LOC: FECT 05:37
PROVIDERS: ATTEND Psychiatry & Neurology Psychiatry
PROC: GZB4ZZZ Other Electroconvulsive Therapy (ICD-10-PCS; principal; 2017-06-08 07:00)
DX: F33.2 Major depressive disorder, recurrent severe without psychotic features (principal)
CPT/HCPCS: 90870; 94760

== ENCOUNTER 2017-06-12 05:36 | Day surgery (SDC) | payer OTHER ==
[2017-06-12 06:25] VITALS: BMI 29.0
[2017-06-12] MEDS ORDERED: KETAMINE HCL 500 MG/10 ML VIAL ONE (07:32)
[2017-06-12 08:49] VITALS: TEMP 97.7
[2017-06-12 09:04] VITALS: BP 107/77; PULSE 71
== END 2017-06-12 09:00 | disposition home or self-care (01) ==
LOC: FECT 05:36
PROVIDERS: ATTEND Psychiatry & Neurology Psychiatry
PROC: GZB4ZZZ Other Electroconvulsive Therapy (ICD-10-PCS; principal; 2017-06-12 07:00)
DX: F33.2 Major depressive disorder, recurrent severe without psychotic features (principal)
CPT/HCPCS: 90870; 94760

== ENCOUNTER 2017-06-15 05:46 | Day surgery (SDC) | payer OTHER ==
[2017-06-12 11:53] VITALS: BMI 28.8
[2017-06-15 06:45] VITALS: TEMP 97.8
[2017-06-15] MEDS ORDERED: KETAMINE HCL 500 MG/10 ML VIAL ONE (07:22)
[2017-06-15 09:04] VITALS: BP 106/66; PULSE 84
[2017-06-15] MEDS ORDERED: ACETAMINOPHEN 325 MG TABLET (FP) PO PRN (09:08)
[2017-06-15] MEDS ORDERED: ONDANSETRON 4 MG/2 ML VIAL IVPUSH PRN (09:08)
[2017-06-15] MEDS ORDERED: LACTATED RINGERS SOLUTION 1,000 ML IV SCH (09:15)
== END 2017-06-15 09:00 | disposition home or self-care (01) ==
LOC: FECT 05:46
PROVIDERS: ATTEND Psychiatry & Neurology Psychiatry
PROC: GZB4ZZZ Other Electroconvulsive Therapy (ICD-10-PCS; principal; 2017-06-15 08:00)
DX: F33.2 Major depressive disorder, recurrent severe without psychotic features (principal)
CPT/HCPCS: 90870; 94760

== ENCOUNTER 2017-06-19 05:45 | Day surgery (SDC) | payer OTHER ==
[2017-06-19] MEDS ORDERED: KETAMINE HCL 500 MG/10 ML VIAL ONE (07:32)
[2017-06-19] MEDS ORDERED: ONDANSETRON 4 MG/2 ML VIAL IVPUSH PRN (07:47)
[2017-06-19] MEDS ORDERED: oxyCODONE HCL 5 MG TABLET PO PRN (07:47)
[2017-06-19] MEDS ORDERED: LACTATED RINGERS SOLUTION 1,000 ML IV SCH (08:00)
[2017-06-19 08:32] VITALS: PULSE 65; TEMP 97.6
[2017-06-19 08:52] VITALS: BP 109/58
== END 2017-06-19 09:00 | disposition home or self-care (01) ==
LOC: FECT 05:45
PROVIDERS: ATTEND Psychiatry & Neurology Psychiatry
PROC: GZB4ZZZ Other Electroconvulsive Therapy (ICD-10-PCS; principal; 2017-06-19 08:15)
DX: F33.2 Major depressive disorder, recurrent severe without psychotic features (principal)
CPT/HCPCS: 90870; 94760

== ENCOUNTER 2017-06-22 05:46 | Day surgery (SDC) | payer OTHER ==
[2017-06-19 13:03] VITALS: BMI 28.8
[2017-06-22 06:57] VITALS: TEMP 97.5
[2017-06-22] MEDS ORDERED: KETAMINE HCL 500 MG/10 ML VIAL ONE (07:48)
[2017-06-22 09:56] VITALS: BP 110/65; PULSE 70
== END 2017-06-22 09:15 | disposition home or self-care (01) ==
LOC: FECT 05:46
PROVIDERS: ATTEND Psychiatry & Neurology Psychiatry
PROC: GZB4ZZZ Other Electroconvulsive Therapy (ICD-10-PCS; principal; 2017-06-22 08:00)
DX: F33.2 Major depressive disorder, recurrent severe without psychotic features (principal)
CPT/HCPCS: 90870; 94760

== ENCOUNTER 2017-06-26 05:45 | Day surgery (SDC) | payer OTHER ==
[2017-06-26] MEDS ORDERED: KETAMINE HCL 500 MG/10 ML VIAL ONE (06:56)
[2017-06-26 08:15] VITALS: TEMP 98
[2017-06-26 08:16] VITALS: BP 115/64; PULSE 66
== END 2017-06-26 08:20 | disposition home or self-care (01) ==
LOC: FECT 05:45
PROVIDERS: ATTEND Psychiatry & Neurology Psychiatry
PROC: GZB4ZZZ Other Electroconvulsive Therapy (ICD-10-PCS; principal; 2017-06-26 08:00)
DX: F33.2 Major depressive disorder, recurrent severe without psychotic features (principal)
CPT/HCPCS: 90870; 94760

== ENCOUNTER 2017-06-29 05:42 | Day surgery (SDC) | payer OTHER ==
[2017-06-29 07:09] VITALS: BMI 28.8
[2017-06-29] MEDS ORDERED: LACTATED RINGERS SOLUTION 1,000 ML IV SCH (07:45)
[2017-06-29] MEDS ORDERED: KETAMINE HCL 500 MG/10 ML VIAL ONE (07:49)
[2017-06-29 08:51] VITALS: TEMP 97.8
[2017-06-29 09:05] VITALS: BP 130/77; PULSE 67
== END 2017-06-29 09:10 | disposition home or self-care (01) ==
LOC: FECT 05:42
PROVIDERS: ATTEND Psychiatry & Neurology Psychiatry
PROC: GZB4ZZZ Other Electroconvulsive Therapy (ICD-10-PCS; principal; 2017-06-29 07:15)
DX: F33.2 Major depressive disorder, recurrent severe without psychotic features (principal)
CPT/HCPCS: 90870; 94760

== ENCOUNTER 2017-07-03 05:48 | Day surgery (SDC) | payer OTHER ==
[2017-07-02 07:19] VITALS: BMI 28.8
[2017-07-03] MEDS ORDERED: KETAMINE HCL 500 MG/10 ML VIAL ONE (07:05)
[2017-07-03 08:23] VITALS: TEMP 97.8
[2017-07-03 08:26] VITALS: BP 124/68; PULSE 61
== END 2017-07-03 08:30 | disposition home or self-care (01) ==
LOC: FECT 05:48
PROVIDERS: ATTEND Psychiatry & Neurology Psychiatry
PROC: GZB4ZZZ Other Electroconvulsive Therapy (ICD-10-PCS; principal; 2017-07-03 08:15)
DX: F33.2 Major depressive disorder, recurrent severe without psychotic features (principal)
CPT/HCPCS: 90870; 94760

== ENCOUNTER 2017-07-13 05:40 | Day surgery (SDC) | payer OTHER ==
[2017-07-09 08:07] VITALS: BMI 26.9
[2017-07-13] MEDS ORDERED: KETAMINE HCL 500 MG/10 ML VIAL ONE (07:03)
[2017-07-13] MEDS ORDERED: ONDANSETRON 4 MG/2 ML VIAL IVPUSH PRN (07:49)
[2017-07-13 08:09] VITALS: TEMP 97.8
[2017-07-13 08:30] VITALS: BP 127/71; PULSE 66
== END 2017-07-13 08:30 | disposition home or self-care (01) ==
LOC: FECT 05:40
PROVIDERS: ATTEND Psychiatry & Neurology Psychiatry
PROC: GZB4ZZZ Other Electroconvulsive Therapy (ICD-10-PCS; principal; 2017-07-13 07:00)
DX: F33.2 Major depressive disorder, recurrent severe without psychotic features (principal)
CPT/HCPCS: 90870; 94760

== ENCOUNTER 2017-07-17 05:41 | Day surgery (SDC) | payer OTHER ==
[2017-07-17 06:15] VITALS: TEMP 97.5; BMI 26.9
[2017-07-17] MEDS ORDERED: KETAMINE HCL 500 MG/10 ML VIAL ONE (07:02)
[2017-07-17 08:36] VITALS: BP 120/60; PULSE 67
== END 2017-07-17 08:40 | disposition home or self-care (01) ==
LOC: FECT 05:41
PROVIDERS: ATTEND Psychiatry & Neurology Psychiatry
PROC: GZB4ZZZ Other Electroconvulsive Therapy (ICD-10-PCS; principal; 2017-07-17 07:45)
DX: F33.2 Major depressive disorder, recurrent severe without psychotic features (principal)
CPT/HCPCS: 90870; 94760

== ENCOUNTER 2017-07-20 06:14 | Day surgery (SDC) | payer OTHER ==
[2017-07-20 06:44] VITALS: TEMP 97.8; BMI 26.9
[2017-07-20] MEDS ORDERED: KETAMINE HCL 500 MG/10 ML VIAL ONE (07:26)
[2017-07-20 08:38] VITALS: BP 110/64; PULSE 67
[2017-07-20] MEDS ORDERED: ONDANSETRON 4 MG/2 ML VIAL IVPUSH PRN (09:13)
[2017-07-20] MEDS ORDERED: LACTATED RINGERS SOLUTION 1,000 ML IV SCH (09:15)
== END 2017-07-20 08:40 | disposition home or self-care (01) ==
LOC: FECT 06:14
PROVIDERS: ATTEND Psychiatry & Neurology Psychiatry
PROC: GZB4ZZZ Other Electroconvulsive Therapy (ICD-10-PCS; principal; 2017-07-20 07:30)
DX: F33.2 Major depressive disorder, recurrent severe without psychotic features (principal)
CPT/HCPCS: 90870; 94760

== ENCOUNTER 2017-07-24 05:46 | Day surgery (SDC) | payer OTHER ==
[2017-07-24 06:02] VITALS: TEMP 98; BMI 26.9
[2017-07-24] MEDS ORDERED: KETAMINE HCL 500 MG/10 ML VIAL ONE (06:58)
[2017-07-24 08:24] VITALS: BP 116/69; PULSE 62
== END 2017-07-24 08:25 | disposition home or self-care (01) ==
LOC: FECT 05:46
PROVIDERS: ATTEND Psychiatry & Neurology Psychiatry
PROC: GZB4ZZZ Other Electroconvulsive Therapy (ICD-10-PCS; principal; 2017-07-24 08:15)
DX: F33.2 Major depressive disorder, recurrent severe without psychotic features (principal)
CPT/HCPCS: 90870; 94760

== ENCOUNTER 2017-07-27 05:44 | Day surgery (SDC) | payer OTHER ==
[2017-07-27 06:24] VITALS: BMI 22.1
[2017-07-27] MEDS ORDERED: KETAMINE HCL 500 MG/10 ML VIAL ONE (07:34)
[2017-07-27] MEDS ORDERED: ONDANSETRON 4 MG/2 ML VIAL IVPUSH PRN (08:56)
[2017-07-27] MEDS ORDERED: LACTATED RINGERS SOLUTION 1,000 ML IV SCH ×2 (09:00→09:30)
[2017-07-27 09:45] VITALS: BP 114/60; PULSE 65; TEMP 97.9
== END 2017-07-27 09:30 | disposition home or self-care (01) ==
LOC: FECT 05:44
PROVIDERS: ATTEND Psychiatry & Neurology Psychiatry
PROC: GZB4ZZZ Other Electroconvulsive Therapy (ICD-10-PCS; principal; 2017-07-27 07:45)
DX: F33.2 Major depressive disorder, recurrent severe without psychotic features (principal)
CPT/HCPCS: 90870; 94760

== ENCOUNTER 2017-07-31 05:47 | Day surgery (SDC) | payer OTHER ==
[2017-07-31 06:39] VITALS: BMI 22.1
[2017-07-31] MEDS ORDERED: KETAMINE HCL 500 MG/10 ML VIAL ONE (07:39)
[2017-07-31 09:06] VITALS: TEMP 97.4
[2017-07-31 09:19] VITALS: BP 115/66; PULSE 71
== END 2017-07-31 09:20 | disposition home or self-care (01) ==
LOC: FECT 05:47
PROVIDERS: ATTEND Psychiatry & Neurology Psychiatry
PROC: GZB4ZZZ Other Electroconvulsive Therapy (ICD-10-PCS; principal; 2017-07-31 08:15)
DX: F33.2 Major depressive disorder, recurrent severe without psychotic features (principal)
CPT/HCPCS: 90870; 94760

== ENCOUNTER 2017-08-07 05:41 | Day surgery (SDC) | payer OTHER ==
--- NOTE | 2017-08-07 07:10 | HP ---
Admitting History and Physical - Admission History of Present Illness: patient is a 77 y/o female with a past medical history of depression, anxiety, hypertension an hyperlipidemia. Patient presents for ect her last ect was . patient reports feeling well and reports an improvement in depressive symptoms since starting ect. She denies any changes to medications. Patient recent hospitalizations or illnesses. patient denies any suicidal or homicidal ideation, visual or auditory hallucinations. History Source: Patient Limitations to Obtaining History: No Limitations - Past Medical History Cardiovascular: Yes: HTN, Hyperlipdemia - Smoking History Smoking history: Never smoked Have you smoked in the past 12 months: No - Alcohol/Substance Use Hx Alcohol Use: No - Social History ADL: Independent History of Recent Travel: No Home Medications - Allergies Allergies/Adverse Reactions: Allergies Allergy/AdvReac Type Severity Reaction Status Date / Time ciprofloxacin [From Cipro] Allergy Severe Swelling Verified 07/31/17 06:23 ciprofloxacin HCl Allergy Severe Swelling Verified 07/31/17 06:23 [From Cipro] levofloxacin [From Levaquin] Allergy Severe Swelling Verified 07/31/17 06:23 - Home Medications Home Medications: Ambulatory Orders Atorvastatin Ca [Lipitor] 20 mg PO HS 07/22/13 FA/Mv,Ca,Iron,Min/Lycopene/Lut [Centrum Tablet] 1 each PO DAILY 07/22/13 Ramipril [Altace] 10 mg PO DAILY 07/22/13 Trazodone HCl 50 mg PO HS 11/09/16 Alprazolam [Xanax] 0.5 mg PO QID 01/04/17 Cholecalciferol (Vitamin D3) [Vitamin D3] 2,000 unit PO DAILY 01/04/17 Fluoxetine HCl [Prozac] 60 mg PO DAILY 01/04/17 Quetiapine Fumarate [Seroquel -] 50 mg PO HS 06/05/17 Brexpiprazole [Rexulti] 0.5 mg PO HS 07/31/17 Family Disease History - Family Disease History Family Disease History: Other: Daughter (depression/anxiety ) Review of Systems - Review of Systems Constitutional: reports: No Symptoms Eyes: reports: No Symptoms HENT: reports: No Symptoms Neck: reports: No Symptoms Cardiovascular: reports: No Symptoms Respiratory: reports: No Symptoms Gastrointestinal: reports: No Symptoms Genitourinary: reports: No Symptoms Musculoskeletal: reports: No Symptoms Integumentary: reports: No Symptoms Neurological: reports: No Symptoms Endocrine: reports: No Symptoms Hematology/Lymphatic: reports: No Symptoms Psychiatric: reports: No Symptoms Physical Examination Constitutional: Yes: Well Nourished, No Distress, Calm Eyes: Yes: WNL, Conjunctiva Clear, EOM Intact HENT: Yes: WNL, Atraumatic, Normocephalic Neck: Yes: WNL, Supple, Trachea Midline Cardiovascular: Yes: WNL, Regular Rate and Rhythm, S1, S2 Respiratory: Yes: WNL, Regular, CTA Bilaterally Gastrointestinal: Yes: WNL, Normal Bowel Sounds, Soft ...Rectal Exam: Yes: Deferred Renal/: Yes: WNL Breast(s): Yes: WNL Musculoskeletal: Yes: WNL Extremities: Yes: WNL Edema: No Peripheral Pulses WNL: Yes Peripheral Pulses: Left Radial: 4+, Right Radial: 4+, Left Doralis Pedis: 3+, Right Dorsalis Pedis: 3+, Left Femoral: 3+, Right Femoral: 3+ Integumentary: Yes: Petechiae Neurological: Yes: WNL, Alert, Oriented ...Motor Strength: WNL Psychiatric: Yes: WNL, Alert, Oriented Labs: reviewed * Imaging - Results EKG: Image Reviewed, Other (nsr) Assessment/Plan patient is a 80 y/o female that presents for ect labs and ekg reviewed patient is medically optimized for procedure informed consent, risks/benefits to be obtained by Dr Brown.
[2017-08-07 07:41] VITALS: BMI 30.1
[2017-08-07] MEDS ORDERED: KETAMINE HCL 500 MG/10 ML VIAL ONE (08:13)
[2017-08-07 08:33] LABS: MCH 31.6 pg (25.7-33.7); MCHC 34.1 g/dl (32.0-36.0); MEAN CELL VOLUME 92.5 fl (80-96); MEAN PLT VOLUME 9.8 fl (7.5-11.1); PLATELET COUNT 190 K/MM3 (134-434); RDW 12.4 % (11.6-15.6); WHITE BLOOD COUNT 4.8 K/mm3 (4.0-10.8)
[2017-08-07 08:36] LABS: ANION GAP 7 (8-16); CO2 30 mmol/L (22-28); CREATININE 1.2 mg/dl (0.6-1.3); GLUCOSE,RANDOM 95 mg/dl (74-106)
[2017-08-07 09:10] VITALS: TEMP 97.7
[2017-08-07 09:41] VITALS: BP 113/70; PULSE 64
[2017-08-07] MEDS ORDERED: ONDANSETRON 4 MG/2 ML VIAL IVPUSH PRN (11:35)
[2017-08-07] MEDS ORDERED: LACTATED RINGERS SOLUTION 1,000 ML IV SCH (11:45)
--- NOTE | 2017-08-08 07:55 | EKG ---
Test Reason : Blood Pressure : / mmHG Vent. Rate : 062 BPM Atrial Rate : 062 BPM P-R Int : 164 ms QRS Dur : 082 ms QT Int : 440 ms P-R-T Axes : 049 -04 038 degrees QTc Int : 446 ms NORMAL SINUS RHYTHM INFERIOR INFARCT , AGE UNDETERMINED ABNORMAL ECG WHEN COMPARED WITH ECG OF 07-FEB-2017 06:18, NO SIGNIFICANT CHANGE WAS FOUND Confirmed by MD Arnold Daniel ([id number]) on 08/07/2017 2:59:01 PM Also confirmed by MD Arnold Daniel [id number]), general expeditor CARROLL SANCHEZ ([id number]) on 08/08/2017 7:55:14 AM Referred By: Óscar Brown Confirmed By:Carroll Arnold MD
== END 2017-08-07 09:30 | disposition home or self-care (01) ==
LOC: FECT 05:41
PROVIDERS: ATTEND Psychiatry & Neurology Psychiatry
PROC: GZB4ZZZ Other Electroconvulsive Therapy (ICD-10-PCS; principal; 2017-08-07 07:30)
DX: F33.2 Major depressive disorder, recurrent severe without psychotic features (principal)
CPT/HCPCS: 36415; 80048; 85027; 90870; 93005; 94760

== ENCOUNTER 2017-08-14 05:41 | Day surgery (SDC) | payer OTHER ==
[2017-08-14 07:04] VITALS: TEMP 98; BMI 30.1
[2017-08-14] MEDS ORDERED: KETAMINE HCL 500 MG/10 ML VIAL ONE (07:49)
[2017-08-14 09:06] VITALS: BP 130/77; PULSE 66
== END 2017-08-14 09:15 | disposition home or self-care (01) ==
LOC: FECT 05:41
PROVIDERS: ATTEND Psychiatry & Neurology Psychiatry
PROC: GZB4ZZZ Other Electroconvulsive Therapy (ICD-10-PCS; principal; 2017-08-14 07:30)
DX: F33.2 Major depressive disorder, recurrent severe without psychotic features (principal)
CPT/HCPCS: 90870; 94760

== ENCOUNTER 2017-08-28 05:42 | Day surgery (SDC) | payer OTHER ==
[2017-08-28 06:16] VITALS: BMI 30.1
[2017-08-28] MEDS ORDERED: KETAMINE HCL 500 MG/10 ML VIAL ONE (06:49)
[2017-08-28] MEDS ORDERED: LIDOCAINE 1% P/F 10 MG/ML VIAL ONE (06:58)
[2017-08-28 07:52] VITALS: TEMP 98.2
[2017-08-28] MEDS ORDERED: ACETAMINOPHEN 325 MG TABLET (FP) PO PRN (08:12)
[2017-08-28 08:22] VITALS: BP 108/62; PULSE 66
== END 2017-08-28 08:27 | disposition home or self-care (01) ==
LOC: FECT 05:42
PROVIDERS: ATTEND Psychiatry & Neurology Psychiatry
PROC: GZB4ZZZ Other Electroconvulsive Therapy (ICD-10-PCS; principal; 2017-08-28 07:30)
DX: F33.2 Major depressive disorder, recurrent severe without psychotic features (principal)
CPT/HCPCS: 90870; 94760

== ENCOUNTER 2017-09-04 05:41 | Day surgery (SDC) | payer OTHER ==
[2017-08-29 11:27] VITALS: BMI 30.1
[2017-09-04] MEDS ORDERED: KETAMINE HCL 500 MG/10 ML VIAL ONE (07:15)
[2017-09-04] MEDS ORDERED: ONDANSETRON 4 MG/2 ML VIAL IVPUSH PRN (07:31)
[2017-09-04] MEDS ORDERED: PROMETHAZINE HCL 25 MG/1 ML VIAL IVPUSH PRN (07:31)
[2017-09-04] MEDS ORDERED: LACTATED RINGERS SOLUTION 1,000 ML IV SCH (07:45)
[2017-09-04 08:22] VITALS: TEMP 97.8
[2017-09-04 08:37] VITALS: BP 110/66; PULSE 75
== END 2017-09-04 08:40 | disposition home or self-care (01) ==
LOC: FECT 05:41
PROVIDERS: ATTEND Psychiatry & Neurology Psychiatry
PROC: GZB4ZZZ Other Electroconvulsive Therapy (ICD-10-PCS; principal; 2017-09-04 07:45)
DX: F33.2 Major depressive disorder, recurrent severe without psychotic features (principal)
CPT/HCPCS: 90870; 94760

== ENCOUNTER 2017-09-11 05:39 | Day surgery (SDC) | payer OTHER ==
--- NOTE | 2017-09-11 07:15 | HP ---
Admitting History and Physical - Admission History of Present Illness: Patient is a 77 y/o female with a past medical history of depression, anxiety, hypertension, and hyperlipidemia. Patient presents for ect, her last ect was . Patient reports feeling much improved since starting ECT, she denies any recent illnesses or hospitalizations. patient denies any changes in medications. patient denies any suicidal or homicidal ideation, visual or auditory hallucinations. History Source: Patient - Past Medical History Cardiovascular: Yes: HTN, Hyperlipdemia - Smoking History Smoking history: Never smoked Have you smoked in the past 12 months: No - Alcohol/Substance Use Hx Alcohol Use: No - Social History Usual Living Arrangement: Yes: With Spouse ADL: Independent History of Recent Travel: No Home Medications - Allergies Allergies/Adverse Reactions: Allergies Allergy/AdvReac Type Severity Reaction Status Date / Time ciprofloxacin [From Cipro] Allergy Severe Swelling Verified 07/31/17 06:23 ciprofloxacin HCl Allergy Severe Swelling Verified 07/31/17 06:23 [From Cipro] levofloxacin [From Levaquin] Allergy Severe Swelling Verified 07/31/17 06:23 - Home Medications Home Medications: Ambulatory Orders Atorvastatin Ca [Lipitor] 20 mg PO HS 07/22/13 FA/Mv,Ca,Iron,Min/Lycopene/Lut [Centrum Tablet] 1 each PO DAILY 07/22/13 Ramipril [Altace] 10 mg PO DAILY 07/22/13 Trazodone HCl 50 mg PO HS 11/09/16 Alprazolam [Xanax] 0.5 mg PO QID 01/04/17 Cholecalciferol (Vitamin D3) [Vitamin D3] 2,000 unit PO DAILY 01/04/17 Fluoxetine HCl [Prozac] 60 mg PO DAILY 01/04/17 Quetiapine Fumarate [Seroquel -] 50 mg PO HS 06/05/17 Family Disease History - Family Disease History Family Disease History: Other: Daughter (depression/anxiety ) Review of Systems - Review of Systems Constitutional: reports: No Symptoms Eyes: reports: No Symptoms HENT: reports: No Symptoms Neck: reports: No Symptoms Cardiovascular: reports: No Symptoms Respiratory: reports: No Symptoms Gastrointestinal: reports: No Symptoms Genitourinary: reports: No Symptoms Musculoskeletal: reports: No Symptoms Integumentary: reports: No Symptoms Neurological: reports: No Symptoms Endocrine: reports: No Symptoms Hematology/Lymphatic: reports: No Symptoms Psychiatric: reports: No Symptoms Physical Examination Constitutional: Yes: Well Nourished, No Distress, Calm Eyes: Yes: WNL, Conjunctiva Clear, EOM Intact HENT: Yes: WNL, Atraumatic, Normocephalic Neck: Yes: WNL, Supple, Trachea Midline Cardiovascular: Yes: WNL, Regular Rate and Rhythm, S1, S2 Respiratory: Yes: WNL, Regular, CTA Bilaterally Gastrointestinal: Yes: WNL, Normal Bowel Sounds, Soft ...Rectal Exam: Yes: Deferred Renal/: Yes: WNL Breast(s): Yes: WNL Musculoskeletal: Yes: WNL Extremities: Yes: WNL Edema: No Peripheral Pulses WNL: Yes Peripheral Pulses: Left Radial: 4+, Right Radial: 4+, Left Doralis Pedis: 3+, Right Dorsalis Pedis: 3+, Left Femoral: 3+, Right Femoral: 3+ Integumentary: Yes: WNL Neurological: Yes: WNL, Alert, Oriented ...Motor Strength: WNL Psychiatric: Yes: WNL, Alert, Oriented Labs: labs 08/19 Imaging - Results EKG: Report Reviewed, Image Reviewed, Other (nsr) Assessment/Plan patient is a 77 y/o female that presents for ect, labs and ekg reviewed patient is medically optimized for procedure informed consent, risks/benefits to be obtained by Dr Brown
[2017-09-11 07:25] VITALS: BMI 29.9
[2017-09-11] MEDS ORDERED: KETAMINE HCL 500 MG/10 ML VIAL ONE (08:13)
[2017-09-11 10:12] VITALS: TEMP 97
[2017-09-11 10:14] VITALS: BP 102/54; PULSE 84
== END 2017-09-11 10:12 | disposition home or self-care (01) ==
LOC: FECT 05:39
PROVIDERS: ATTEND Psychiatry & Neurology Psychiatry
PROC: GZB4ZZZ Other Electroconvulsive Therapy (ICD-10-PCS; principal; 2017-09-11 07:45)
DX: F33.2 Major depressive disorder, recurrent severe without psychotic features (principal)
CPT/HCPCS: 90870; 94760

== ENCOUNTER 2017-09-25 05:41 | Day surgery (SDC) | payer OTHER ==
[2017-09-21 13:56] VITALS: BMI 29.9
[2017-09-25] MEDS ORDERED: KETAMINE HCL 500 MG/10 ML VIAL ONE (07:47)
[2017-09-25] MEDS ORDERED: ACETAMINOPHEN 325 MG TABLET (FP) PO PRN (08:40)
[2017-09-25] MEDS ORDERED: ONDANSETRON 4 MG/2 ML VIAL IVPUSH PRN (08:40)
[2017-09-25] MEDS ORDERED: PROMETHAZINE HCL 25 MG/1 ML VIAL IVPUSH PRN (08:40)
[2017-09-25] MEDS ORDERED: LACTATED RINGERS SOLUTION 1,000 ML IV SCH (08:45)
[2017-09-25 08:57] VITALS: TEMP 97.6
[2017-09-25 09:40] VITALS: BP 103/63; PULSE 63
== END 2017-09-25 09:30 | disposition home or self-care (01) ==
LOC: FECT 05:41
PROVIDERS: ATTEND Psychiatry & Neurology Psychiatry
PROC: GZB4ZZZ Other Electroconvulsive Therapy (ICD-10-PCS; principal; 2017-09-25 07:45)
DX: F33.2 Major depressive disorder, recurrent severe without psychotic features (principal)
CPT/HCPCS: 90870; 94760

== ENCOUNTER 2019-04-15 15:18 | Emergency (ER) | payer OTHER | END 2019-04-15 17:55 | disposition home or self-care (01) | LOC: FER 15:18 ==

== ENCOUNTER 2020-03-12 07:56 | Day surgery (SDC) | payer OTHER ==
[2020-03-09 12:34] VITALS: BMI 32.1
[2020-03-12 09:38] VITALS: TEMP 97.9
[2020-03-12 11:01] VITALS: BP 133/66; PULSE 65
--- NOTE | 2020-03-15 17:19 | PATH ---
Surgical Pathology Report Patient Name: ERNIE DELGADO [facility]. Rec. #: [id number] /Age/Gender: 1940 (Age: 79) / F Account: [id number] Location: [facility]-ENDOSCOPY Taken: 03/12/2020 Received: 03/12/2020 Reported: 03/15/2020 Physicians: Sarita Green M.D. Specimen(s) Received A: SECOND PORTION DUODENUM AND DUODENAL BULB B: ANTRUM C: DISTAL ESOPHAGUS STRICTURE D: ESOPHAGUS Clinical History Dysphagia, Schatzki's ring Postoperative diagnosis: Distal popliteal stricture, hiatal hernia, gastritis Final Diagnosis A. DUODENUM, SECOND PORTION AND DUODENAL BULB, BIOPSY: DUODENAL MUCOSA WITH MODERATE ACUTE AND CHRONIC DUODENITIS AND FOCAL GASTRIC METAPLASIA. B. STOMACH, ANTRUM, BIOPSY: GASTRIC ANTRAL MUCOSA WITH MILD CHRONIC GASTRITIS. IMMUNOHISTOCHEMICAL STAIN FOR H. PYLORI IS NEGATIVE. C. MID ESOPHAGUS, BIOPSY: SQUAMOUS MUCOSA WITH CHANGES OF MILD REFLUX TYPE ESOPHAGITIS. NO DIAGNOSTIC FEATURES OF EOSINOPHILIC ESOPHAGITIS IDENTIFIED. D. DISTAL ESOPHAGEAL STRICTURE, BIOPSY: SQUAMOUS MUCOSA WITH CHANGES OF MILD REFLUX TYPE ESOPHAGITIS. Positive and negative controls (internal if applicable) show appropriate results. Electronically Signed Larissa Lua M.D. Gross Description A. Received in formalin, labeled "biopsy second portion of duodenum and bulb" are 3 messer, irregular portions of soft tissue ranging from 0.3-0.4 cm. in greatest dimension. The specimens are submitted in toto in one cassette. B. Received in formalin, labeled "biopsy antrum" are 5 messer, irregular portions of soft tissue ranging from 0.1-0.5 cm. in greatest dimension. The specimens are submitted in toto in one cassette. C. Received in formalin, labeled "biopsy mid esophagus" are 2 messer, irregular portions of soft tissue averaging 0.4 cm. in greatest dimension. The specimens are submitted in toto in one cassette. D. Received in formalin, labeled "biopsy esophageal stricture" are 5 messer, irregular portions of soft tissue ranging from 0.2-0.3 cm. in greatest dimension. The specimens are submitted in toto in one cassette. DL/03/12/2020 saudi/03/12/2020
== END 2020-03-12 10:45 | disposition home or self-care (01) ==
LOC: JASU-ENDO 07:56
PROVIDERS: ATTEND Internal Medicine Gastroenterology
PROC: 0DB38ZX Excision of Lower Esophagus, Via Natural or Artificial Opening Endoscopic, Diagnostic (ICD-10-PCS; 2020-03-12)
PROC: 0DB28ZX Excision of Middle Esophagus, Via Natural or Artificial Opening Endoscopic, Diagnostic (ICD-10-PCS; 2020-03-12)
PROC: 0D738ZZ Dilation of Lower Esophagus, Via Natural or Artificial Opening Endoscopic (ICD-10-PCS; principal; 2020-03-12 09:00)
DX: K22.2 Esophageal obstruction (principal); K44.9 Diaphragmatic hernia without obstruction or gangrene; K25.9 Gastric ulcer, unspecified as acute or chronic, without hemorrhage or perforation
CPT/HCPCS: 88305-TC; 88342-TC

== ENCOUNTER 2021-01-03 05:27 | Day surgery (SDC) | payer OTHER ==
[2020-12-30 14:42] VITALS: BMI 31.2
[2021-01-03 10:29] VITALS: TEMP 97.5
[2021-01-03 11:21] VITALS: BP 132/58; PULSE 68
== END 2021-01-03 11:40 | disposition home or self-care (01) ==
LOC: JASU-SURG 05:27
PROVIDERS: ATTEND Internal Medicine Gastroenterology
PROC: 0DBL8ZX Excision of Transverse Colon, Via Natural or Artificial Opening Endoscopic, Diagnostic (ICD-10-PCS; 2021-01-03)
PROC: 0DBC8ZX Excision of Ileocecal Valve, Via Natural or Artificial Opening Endoscopic, Diagnostic (ICD-10-PCS; principal; 2021-01-03 09:58)
DX: Z12.11 Encounter for screening for malignant neoplasm of colon (principal); D12.3 Benign neoplasm of transverse colon; D17.5 Benign lipomatous neoplasm of intra-abdominal organs; K57.30 Diverticulosis of large intestine without perforation or abscess without bleeding; Z86.010 Personal history of colon polyps
CPT/HCPCS: 88305-TC